=== PATIENT | female | born 1970 | race Asian ===

== ENCOUNTER 2017-12-30 15:46 | Emergency (ER) | payer OTHER ==
[~2017-12-30] VITALS: Ht 157.5 cm; Wt 49.9 kg
[~2017-12-30 15:46] MED LIST: SYNTHROID25 MCG ORAL
[2017-12-30 16:04] VITALS: BP 130/76
--- NOTE | 2017-12-30 18:00 | Diagnostic Imaging Report ---
EXAM: CT Lumbar Spine Without Intravenous Contrast CLINICAL HISTORY: PAIN TECHNIQUE: Axial computed tomography images of the lumbar spine without intravenous contrast. CTDI is 12 mGy and DLP is 302 mGy-cm. One or more of the following dose reduction techniques were used: automated exposure control, adjustment of the mA and/or kV according to patient size, use of iterative reconstruction technique. COMPARISON: No relevant prior studies available. FINDINGS: Vertebrae: No acute fracture or subluxation. Discs/spinal canal/neural foramina: L5-S1 degenerative changes. No significant spinal canal or neuroforaminal stenosis. Soft tissues: Unremarkable. IMPRESSION: No acute fracture or subluxation.
--- NOTE | 2017-12-30 18:01 | Diagnostic Imaging Report ---
EXAM: CT Pelvis Without Intravenous Contrast CLINICAL HISTORY: PAIN TECHNIQUE: Axial computed tomography images of the pelvis without intravenous contrast. CTDI is 11 mGy and DLP is 292 mGy-cm. One or more of the following dose reduction techniques were used: automated exposure control, adjustment of the mA and/or kV according to patient size, use of iterative reconstruction technique. COMPARISON: No relevant prior studies available. FINDINGS: Bowel: Unremarkable as visualized. Appendix: No findings to suggest acute appendicitis. Intraperitoneal space: Unremarkable as visualized. Bladder: Unremarkable. Reproductive: Enlarged uterus with fibroids. Bones/joints: No acute fracture. No dislocation. Soft tissues: Right suprapubic/labial subcutaneous 1.7 cm density which may be cyst, adenopathy, versus lesion. Vasculature: Unremarkable as visualized. IMPRESSION: 1. Enlarged uterus with fibroids. 2. Right suprapubic/labial subcutaneous 1.7 cm density which may be cyst, adenopathy, versus lesion.
[2017-12-30] MEDS ORDERED: IBUPROFEN600 MG ORAL (18:26)
--- NOTE | 2017-12-30 18:26 | Emergency Room Report ---
History of Present Illness General Chief Complaint: Multiple Trauma/Fall Source: Patient, Medical Record Present Illness Allergies: Coded Allergies: No Known Allergies (Unverified , 12/04/13) Patient History Last Menstrual Period: 12/05/17 Nursing Documentation-[facility] Past Medical History: No History, Except For Hx Cardiac Problems: No - thyroid cyst Hx Neurological Problems: No - osteoporosis Physical Exam Vital Signs Date Time Temp Pulse Resp B/P (MAP) Pulse Ox O2 Delivery O2 Flow Rate FiO2 12/30/17 15:56 97.9 83 16 130/76 97 Room Air Medical Decision Making TYSON Umaña is my supervising Physician whom patient management has been discussed with. Diagnostic Impression: Primary Impression: Strain, lumbosacral Qualified Codes: S39.012A - Strain of muscle, fascia and tendon of lower back , initial encounter Additional Impressions: Contusion of lower back Qualified Codes: S30.0XXA - Contusion of lower back and pelvis, initial encounter Contusion of hip, left Qualified Codes: S70.02XA - Contusion of left hip, initial encounter ER Course Pt. presents to the ED c/o [ ] Ddx considered but are not limited to Fracture, dislocation, contusion, Sprain/ Strain/Spasm, Epidural abscess, Neoplastic mets. Vital signs: are WNL, pt. is afebrile H&PE are most consistent with musculoskeletal injury will perform imaging to r/ o fractures/dislocations. ORDERS: - X-ray [ ] - negative for fx, Dislocation, or significant soft tissue injury, per preliminary read in ED, and signed by TYSON Hernandez, my supervising physician has reviewed, and agrees with my interpretation. ED INTERVENTIONS: - [ ] DISCHARGE: At this time pt. is stable for d/c to home. Will provide printed patient care instructions, and any necessary prescriptions. Care plan and follow up instructions have been discussed with the patient prior to discharge. Last Vital Signs Date Time Temp Pulse Resp B/P (MAP) Pulse Ox O2 Delivery O2 Flow Rate FiO2 12/30/17 17:13 97.9 12/30/17 16:04 83 16 130/76 97 Room Air Disposition: HOME, SELF-CARE Condition: Stable Referrals: NOT CHOSEN IPA/MD,REFERRING (PCP) Departure Forms: Return to Work Return to Work Date: Jan 03, 2018 Work Restrictions: No Heavy Lifting, No Prolonged Standing Other Restrictions: light duty as tolerated by employee x 1 week. Return to Full Activity: Jan 10, 2018 Patient Instructions: Contusion, Mucd-rx-Dehy Additional Instructions: Take medications as directed. Follow up with a Primary Care Provider/ [facility] in 3-5 days, even if your symptoms have resolved. --Please review list of primary care clinics, if you do not already have a primary care provider Return sooner to ED if new symptoms occur, or current symptoms become worse. - Please note that this Emergency Department Report was dictated using [employer] molder technology software, occasionally this can lead to erroneous entry secondary to interpretation by the dictation equipment. Chioma Hernandez Dec 30, 2017 18:26
[2017-12-30 18:33] VITALS: BP 130/76
== END 2017-12-30 18:34 | disposition home or self-care (01) ==
LOC: EMR 16:08
DX: S39.012A Strain of muscle, fascia and tendon of lower back, initial encounter (principal); S30.0XXA Contusion of lower back and pelvis, initial encounter; S70.02XA Contusion of left hip, initial encounter; W19.XXXA Unspecified fall, initial encounter; Y92.239 Unspecified place in hospital as the place of occurrence of the external cause; Y99.0 Civilian activity done for income or pay; M81.0 Age-related osteoporosis without current pathological fracture; D25.9 Leiomyoma of uterus, unspecified
CPT/HCPCS: 72131; 72192; 81025; 99284